=== PATIENT | female | born 1970 | race Caucasian/White ===

== ENCOUNTER 2019-06-02 06:55 | Observation (INO) | payer OTHER ==
--- OUTSIDE RECORDS SUMMARY | 2019-06-02 06:57 | XMS REPORT | Clinical Summary ---
:1970 Author Organization [facility] Address [address] [place] [address] Care Team Providers Name Role Phone Unavailable Primary Care Provider Unavailable Allergies No Known Allergies Medications Medication Sig Dispensed Refills Start Date End Date Status meloxicam (MOBIC) 0 12/17/2017 Active 7.5 MG tablet atorvastatin 0 12/15/2017 Active (LIPITOR) 20 MG tablet sertraline (ZOLOFT) Take 100 mg by 0 Active 100 MG tablet mouth daily. metFORMIN (GLUMETZA) Take 500 mg by 0 Active 500 MG (MOD) 24 hr mouth daily with tablet breakfast. [id number] Take by mouth. 0 Active lic acid (OOAQPJCPPBUK-CHUT-A INERALS-FOLIC ACID) 3,500-18-0.4 unit-mg-mg Chew CONTOUR NEXT TEST TEST GLUCOSE UP 3 04/29/2018 Active STRIPS Strp TO 6 TIMES DAILY conjugated estrogens Place 0.5 g 42.5 g 1 03/23/2018 03/23/2019 (PREMARIN) 0.625 vaginally 3 mg/gram vaginal (three) times a cream week. Active Problems Problem Noted Date Vaginal atrophy 12/24/2017 Dyspareunia, female 12/24/2017 Hypoactive sexual desire 12/24/2017 Encounters Date Type Specialty Care Team Description 05/31/2019 Office Visit Obstetrics and Anel Chatman Well woman exam with Gynecology MD Adrianna routine gynecological exam (Primary Dx) 07/16/2018 Telephone Obstetrics and Anel Chatman Results Gynecology MD Adrianna 06/08/2018 Orders Only Obstetrics and Anel Chatman Gynecology MD Adrianna 06/01/2018 Orders Only Obstetrics and Anel Chatman Gynecology MD Adrianna after 06/01/2018 Family History Medical History Relation Name Comments Diabetes Maternal Grandmother Relation Name Status Comments Maternal Grandmother Social History Tobacco Use Types Packs/Day Years Used Date Never Smoker Smokeless Tobacco: Never Used Alcohol Use Drinks/Week oz/Week Comments Yes Sex Assigned at Date Recorded Not on file Job Start Date Occupation Industry Not on file Not on file Not on file Travel History Travel Start Travel End No recent travel history available. Last Filed Vital Signs Vital Sign Reading Time Taken Blood Pressure 145/89 05/31/2019 8:14 AM CDT Pulse 57 05/31/2019 8:14 AM CDT Temperature 36.7 C (98 F) 05/31/2019 8:14 AM CDT Respiratory Rate - - Oxygen Saturation - - Inhaled Oxygen Concentration - - Weight 68.5 kg (151 lb) 05/31/2019 8:14 AM CDT Height 172.7 cm (5' 8") 05/31/2019 8:14 AM CDT Body Mass Index 22.96 05/31/2019 8:14 AM CDT Plan of Treatment Date Type Specialty Care Team Description 06/05/2020 Office Visit Obstetrics and Gynecology Anel Chatman MD [facility] [address] [phone] Procedures Procedure Name Priority Date/Time Associated Diagnosis Comments MAMMO SCREENING Routine 06/08/2018 Results for this BILATERAL procedure are in the results section. PAP IG CT-NG RFX HPV AP Routine 06/01/2018 Results for this ASCU procedure are in the results section. after 06/01/2018 Results Mammography screening bilateral (06/08/2018) Narrative Performed At PAP IG CT-NG RFX HPV ASCU (06/01/2018) Narrative Performed At after 06/01/2018 Insurance Payer Benefit Plan / Group Subscriber ID Type Phone Address [employer] - [employer] HMO POS QPOS xxxxxxxxx HMO/POS
[2019-06-02] MEDS ORDERED: ONDANSETRON 4 MG/2 ML VIAL ONE ×2 (07:27→13:02)
[2019-06-02] MEDS ORDERED: MORPHINE 4 MG/ML SYR ONE ×2 (07:27→07:59)
[2019-06-02] MEDS ORDERED: FENTANYL CITR 100 MCG/2 ML ONE ×2 (08:23→11:06)
[2019-06-02] MEDS ORDERED: NA CHLORIDE 0.9% 1,000 ML ONE (08:23)
[2019-06-02 08:36] LABS: Basophils % 0.4 % (0-1.3); Eosinophils % 0.5 % (0-4.4); Hematocrit 38.3 % (36.0-45.0); Lymphocytes % 17.2 % (15.3-44.8); Monocytes % 5.6 % (3.3-12.3); RBC Red Blood Cell Count 4.17 M/uL (3.86-4.86)
[2019-06-02 09:43] LABS: Potassium 4.2 mmol/L (3.5-5.1)
--- NOTE | 2019-06-02 10:27 | RAD REPORT ---
EXAM DESCRIPTION: RAD - Femur Right - 06/02/2019 7:54 am CLINICAL HISTORY: Right leg pain FINDINGS: No femoral fracture seen
--- NOTE | 2019-06-02 10:27 | RAD REPORT ---
EXAM DESCRIPTION: CT - Lower Ext Angio - 06/02/2019 10:05 am CLINICAL HISTORY: Knee dislocation with tibial fracture and knee pain COMPARISON: X-rays June 02, 2019 TECHNIQUE: Computed tomography angiography of the right lower extremity obtained. 100 cc Isovue 370 was administered intravenously. Coronal and sagittal reconstruction were performed. MIP 3D reconstruction was performed All CT scans are performed using dose optimization technique as appropriate and may include automated exposure control or mA/KV adjustment according to patient size. FINDINGS: Tibia is dislocated laterally with respect to the femur. Moderate joint effusion Comminuted fracture involves the tibial spine with impaction of the lateral tibial plateau and avulsi on fracture fragments. The fracture extends inferiorly within the tibia with the craniocaudal length of 12 centimeters. Right common femoral, superficial femoral, deep femoral, popliteal, anterior tibial, posterior tibial and peroneal arteries are patent without tear, dissection or stenosis. IMPRESSION: Negative for a right lower extremity arterial injury
--- NOTE | 2019-06-02 10:27 | RAD REPORT ---
EXAM DESCRIPTION: RAD - Pelvis - 06/02/2019 7:54 am CLINICAL HISTORY: Pelvic pain status post injury FINDINGS: No fracture or dislocation is seen.
--- NOTE | 2019-06-02 10:28 | RAD REPORT ---
EXAM DESCRIPTION: RAD - Knee Right 2 View - 06/02/2019 7:54 am CLINICAL HISTORY: Right knee pain FINDINGS: The tibia is dislocated laterally with respect to the femur. Impacted fracture involves the lateral tibial plateau. Avulsion, comminuted fracture tibial spine. Th e fracture extends distally within the tibia with a craniocaudal length of 11 centimeters. The fractu re extends medially as well as laterally. Mild displacement of the medial fracture fragments is prese nt.
--- NOTE | 2019-06-02 10:28 | RAD REPORT ---
EXAM DESCRIPTION: RAD - Tib Fib Right - 06/02/2019 7:54 am CLINICAL HISTORY: Right leg pain FINDINGS: The tibia is dislocated laterally with respect to the femur. Impacted fracture involves the lateral tibial plateau. Avulsion, comminuted fracture tibial spine. Th e fracture extends distally within the tibia with a craniocaudal length of 11 centimeters. The fractu re extends medially as well as laterally. Mild displacement of the medial fracture fragments is prese nt.
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
[2019-06-02] MEDS ORDERED: MEPERIDINE HCL 25 MG/0.5 ML ONE (13:35)
[2019-06-02] MEDS ORDERED: FENTANYL CITR 100 MCG/2 ML IV ONE ×2 (14:29→18:32)
[2019-06-02] MEDS ORDERED: ENOXAPARIN 40 MG/0.4 ML SQ SCH (15:00)
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
== END 2019-06-02 18:50 | disposition home or self-care (01) ==
LOC: ER 06:55 → ERHOLD 12:37 → 4TH 13:58
PROVIDERS: ADMIT Family Medicine; ATTEND Family Medicine
DX: S82.141A Displaced bicondylar fracture of right tibia, initial encounter for closed fracture (principal); S82.111A Displaced fracture of right tibial spine, initial encounter for closed fracture; V19.3XXA Pedal cyclist (driver) (passenger) injured in unspecified nontraffic accident, initial encounter; Y93.K1 Activity, walking an animal; E10.9 Type 1 diabetes mellitus without complications; Z96.41 Presence of insulin pump (external) (internal)
CPT/HCPCS: 36415; 72170; 73706; 80048; 85025; 94760; 99285; G0378; J1650; J2175; J2405; J3010; J7030; Q9967

== ENCOUNTER 2020-09-03 09:13 | Emergency (ER) | payer OTHER ==
--- OUTSIDE RECORDS SUMMARY | 2020-09-03 09:17 | XMS REPORT | Continuity of Care Document ---
:1970 Author Organization [facility] Care Team Providers Name Role Phone [facility] Unavailable Un available Problems Problem Status Onset Classification Date Comments Sourc e Date Reported Pain in leg, 06/10/2019 Aime as unspecified [address] [place] [address] R22 - LOCALIZED Active Manjeet rial SWELLING, MASS [address] [place] [address] nn AND L NEEDS STAT Active [address] [id number] Active [address] TIBIAL FX Active [address] DISPLACED Active [facility] BICONDYLAR Medical FRACTURE OF Center UNSP TI DISPLACED Active [facility] OBLIQUE Medical FRACTURE OF Center SHAFT OF R Medications Medication Details Route Status Patient Ordering Order Source Instructions Provider Date Lidocaine 0.05 1 patch, TOP, Active [place] MG/MG Transdermal Daily, PRN as 2019 Medical Patch needed for Center pain, # 30 patch, 0 Refill(s) Ondansetron 4 MG 4 mg = 1 tab, Active [place] Oral Tablet PO, Q8H, PRN as 2019 Medi judie [Zofran] needed for Center nausea, # 25 tab, 0 Refill(s) tramadol 50 mg = 1 tab, Active [place] hydrochloride 50 PO, Q6H, PRN 2019 Me dical MG Oral Tablet take only as Cent er needed for moderate to severe pain, # 40 tab, 0 Refill(s) Aspirin Enteric 81 mg = 1 tab, Active H [place] Coated 81 mg oral PO, Daily, # 38 2019 Medical delayed release tab, 0 Center tablet Refill(s) sennosides, INTERMEDIATE Notes: (Same No Longer H [place] as: Senokot) Active 2019 [facility] Methocarbamol Notes: (Same No Longer [facility] as:Robaxin) Active 2019 [facility] remove patch Notes: Remove No Longer [facility] patch 12 hours Active 2019 Medical after Center application each day. Docusate Notes: (Same No Longer [place] as: Colace) (Do Active 2018 Medical Not Crush) Center tizanidine Notes: (Same No Longer Aime as As: Zanaflex) Active 2019 [facility] Center gabapentin Notes: (Same No Longer A[place] as as: Neurontin) Active 2019 [facility] [place] Lidocaine Notes: Apply [place] Longer [place] Hydrochloride only once for Active 2018 Medi judie 0.05 MG/MG up to 12 hours Center Transdermal Patch in a 24-hour [Lidoderm] period (12 hours on and 12 hours off). (Same as: Lidoderm) "Remove old patch before application of new patch" gabapentin Notes: (Same No Longer A[place] as as: Neurontin) Active 2019 [facility] [place] Acetaminophen Notes: [place] acetaminophen Active 2019 [facility] 4000 mg/day (4 Center gm/day). (Same as: Tylenol Extra Strength) tizanidine Notes: (Same No Longer A[place] as As: Zanaflex) Active 2019 [facility] [place] Oxycodone Notes: (Same [place] Long[place] Hydrochloride 5 as: Roxicodone) Active 2019 Medical MG Oral Tablet [place] Cefazolin 2 gm, 20 mL, [place] Route: IVP, Active 2018 Medical Drug form: [place] SOLN, Q8H, Dosing Weight 68.182, kg, Start date: 06/16/19 20:00:00 CDT, Duration: 3 doses or times, Stop date: 06/17/19 12:00:00 CDT, ABX Indication: Surgical Prophylaxis, 0 Oxycodone 10 mg, Route: [place] Hydrochloride 5 PO, Drug form: 2019 M edical MG Oral Tablet TAB, Q4H, [place] Dosing Weight 68.182, kg, PRN Pain Score 7-10, Start date: 06/16/19 17:57:00 CDT, Duration: 30 day, Stop date: 07/16/19 17:56:00 CDT Hydromorphone 0.5 mg, Route: Inactive [place] IVP, ONCE, 2019 Medical Dosing Weight Center 68.182, kg, PRN Pain Score 7-10, Start date: 06/16/19 12:53:00 CDT Acetaminophen 1,000 mg, [place] Route: PO, Drug 2019 Medical form: TAB, Center ONCE, Dosing Weight 68.182, kg, PRN Pain Score 1-3, Start date: 06/16/19 12:53:00 CDT Methocarbamol Notes: (Same Inactive [place] as:Robaxin) 2019 Medical Center Oxycodone 10 mg, Route: Inactive [place] Hydrochloride 5 PO, ONCE, 2019 Medica l MG Oral Tablet Dosing Weight [address] ter 68.182, kg, Priority: NOW, Start date: 06/16/19 11:32:00 CDT, Stop date: 06/16/19 11:32:00 CDT Morphine Notes: (Same Inactive [facility] as:MORPhine 2019 Medical Sulfate) Center tramadol Notes: Not to Inactive [facility] hydrochloride 50 exceed 2019 Medical MG Oral Tablet 400mg/day. Center (Same As: Ultram) Acetaminophen 325 Notes: Same as Inactive 06/16[facility] [place] MG / Hydrocodone [place] 325-7.5mg 2019 Medical Bitartrate 7.5 MG Do not exceed Center Oral Tablet 4gm/day of [[place] 7.5/325] acetaminophen. ondansetron Route: IV, Drug Inactive [facility] (ANES) form: INJ, 2019 Medical ONCE, Stop Center date: 06/16/19 10:26:00 CDT glycopyrrolate Route: IV, Drug Inactive 06/16[facility] (ANES) form: INJ, 2019 Medical ONCE, Stop Center date: 06/16/19 10:26:00 CDT neostigmine Route: IV, Drug Inactive 06/16[facility] (ANES) form: INJ, 2019 Medical ONCE, Stop Center date: 06/16/19 10:26:00 CDT Hydromorphone 0.5 mg, Route: Inactive [place] IVP, Q5Min, 2019 Medical Dosing Weight Center 68.182, kg, PRN Pain Score 7-10, Start date: 06/16/19 10:00:00 CDT, Duration: 4 doses or times, Stop date: Limited # of times Flumazenil Notes: (Same [place] as: Romazicon) 2019 [facility] [place] Naloxone Notes: Same [place] Narcan 2019 [facility] Center Promethazine Notes: Do not Inactive [place] give IV push. 2019 Medical (Same as: [place] Phenergan) Ondansetron 4 mg, Route: Inactive Aime as IVP, ONCE, 2019 Medical Dosing Weight Center 68.182, kg, PRN Nausea & Vomiting, Start date: 06/16/19 10:00:00 CDT Fentanyl Notes: (Same Inactive [place] as: Sublimaze) 2019 [facility] Preservative [place] free. rocuronium (ANES) Route: IV, Drug Inactive 06/16 [place] form: INJ, 2018 Medical ONCE, Stop Center date: 06/16/19 8:29:00 CDT propofol (ANES) Route: IV, Drug Inactive [place] form: INJ, 2018 Medical ONCE, Stop Center date: 06/16/19 8:29:00 CDT scopolamine Route: Inactive [place] (ANES) Transdermal, 2019 Medical Drug form: Center ERFILM, ONCE, Stop date: 06/16/19 8:29:00 CDT fentaNYL (ANES) Route: IV, Drug Inactive [place] form: INJ, 2018 Medical ONCE, Stop Center date: 06/16/19 8:29:00 CDT lidocaine (ANES) Route: IV, Drug Inactive [place] form: INJ, 2018 Medical ONCE, Stop Center date: 06/16/19 8:29:00 CDT ceFAZolin (ANES) Route: IV, Drug Inactive [place] form: INJ, 2018 Medical ONCE, Stop Center date: 06/16/19 8:24:00 CDT ketAMINE (ANES) Route: IV, Drug Inactive [place] form: INJ, 2018 Medical ONCE, Stop Center date: 06/16/19 8:24:00 CDT midazolam (ANES) Route: IV, Drug Inactive [place] form: SOLN, 2018 Medical ONCE, Stop Center date: 06/16/19 8:14:00 CDT dexmedetomidine Route: IV, Drug Inactive [place] (ANES) 200 form: INJ, 2019 Medical microgram Start date: Center 06/16/19 8:03:00 CDT, Stop date: 06/16/19 9:03:00 CDT 72 HR Scopolamine Notes: Change No Longer [place] 0.0139 MG/HR patch every 72 Active 2019 Medi judie Transdermal Patch hours (Same Center as: Transderm-Scop) aprepitant Notes: Same as: No Longer [place] Emend Active 2019 Medical restricted to Center the Hematology/Onco logy service for high and moderate emetogenic regimen according to ASCO Guidelines Passthrough Only for Chemotherapy-In duced nausea & vomiting Lactated Ringers Route: IV, Inactive [place] Injection IV Total Volume: 2019 Medic al (ANES) 1000 mL 1,000, Start Cent er date: 06/16/19 7:38:00 CDT, Stop date: 06/16/19 8:38:00 CDT gabapentin 300 MG 300 mg, Route: Inactive [place] Oral Capsule PO, Drug form: 2019 Medi judie CAP, ONCE, Center Dosing Weight 68.182, kg, Start date: 06/16/19 6:44:00 CDT, Stop date: 06/16/19 6:44:00 CDT Tylenol Notes: Max Inactive [place] acetaminophen 2019 Medical 4000 mg/day (4 Center gm/day). (Same as: Tylenol Extra Strength) ceFAZolin Notes: (Same as No Longer [place] Ancef) Active 2019 [facility] spironolactone 25 25 mg = 1 tab, Active [place] mg oral tablet PO, QPM, 0 2019 Medica l Refill(s) [place] Docusate Sodium 300 mg = 3 cap, Active [place] 100 MG Oral PO, QPM, 0 2018 Medical Capsule [Colace] Refill(s) Cente r Acetaminophen 1,000 mg, PO, No Longer [facility] PRN Pain Score Active 2019 Medical 4-6, 0 Center Refill(s) Acetaminophen 300 1 tab, PO, Q6H, No Longer 05/18 [facility] MG / Codeine PRN Pain Score Active 2019 [facility] judie Phosphate 60 MG 1-3, 0 Center Oral Tablet Refill(s) [Tylenol with Codeine #4] tizanidine 2 mg 2 mg = 1 tab, Active [facility] oral tablet PO, Q6H, PRN 2019 Medical Muscle Spasms, Center # 25 tab, 0 Refill(s) gabapentin 300 MG 300 mg = 1 cap, Active [facility] Oral Capsule PO, Q8Hnow, # 2019 Medic al 90 cap, 0 Center Refill(s) Aspirin 81 MG 81 mg = 1 tab, Active [facility] Enteric Coated PO, BID, 0 2019 Medica l Tablet Refill(s) Center Acetaminophen 300 1 tab, PO, Q4H, Active [facility] MG / Codeine PRN Pain, X 7 2019 Medic al Phosphate 60 MG day, # 40 tab, C enter Oral Tablet 0 Refill(s) [Tylenol with Codeine #4] gabapentin 300 MG Notes: (Same No Longer [facility] Oral Capsule as: Neurontin) Active 2019 [facility] Oxycodone Notes: (Same [place] Longer [place] Hydrochloride 5 as: Roxicodone) Active 2019 Medical MG Oral Tablet Center Morphine Notes: (Same No Longer [place] as:MORPhine Active 2019 Medical Sulfate) Center Enoxaparin Notes: (Same [place] as: Lovenox) 2019 Medical Center sennosides, INTERMEDIATE Notes: (Same No Longer 06/04/ H [place] as: Senokot) Active 2019 [facility] Aspirin 81 MG Notes: Do not No Longer [facility] Enteric Coated crush or chew. Active 2019 N[place] dical Tablet (Same As: Center Ecotrin) sugammadex Notes: (Same No Longer Aime as as: [place]) Active 2019 [facility] ondansetron Route: IV, Drug Inactive [facility] (ANES) form: INJ, 2019 Medical ONCE, Stop Center date: 06/03/19 9:42:00 CDT Ondansetron Notes: (Same Inactive A[place] as as: Zofran) 2019 Medical MEDICATION Center WASTE Product Size: 4 mg Product Wasted: ___ mg Labetalol 10 mg, 2 mL, Inactive [facility] [place] Route: IVP, 2019 Medical Drug form: INJ, Center Q5Min, Dosing Weight 68.182, kg, PRN Elevated BP, Start date: 06/03/19 9:38:00 CDT, Duration: 5 doses or times, Stop date: Limited # of times, 0 esmolol Notes: (Same Inactive [place] as: Brevibloc) 2019 [facility] Center Hydralazine Notes: (Same Inactive [place] as as: Apresoline) 2019 Medical Push over 5 Center minutes Metoprolol Notes: (Same [place] as: Lopressor) 2019 Medical Push over 2 Center minutes Naloxone Notes: (Same Inactive [place] as: Narcan) 2019 [facility] Center Flumazenil Notes: (Same [place] as: Romazicon) 2019 [facility] Center dexamethasone Route: IV, Drug Inactive H [place] (ANES) form: INJ, 2018 Medical ONCE, Stop Center date: 06/03/19 9:37:00 CDT rocuronium (ANES) Route: IV, Drug Inactive 06/03 [facility] form: INJ, 2018 Medical ONCE, Stop Center date: 06/03/19 9:32:00 CDT fentaNYL (ANES) Route: IV, Drug Inactive [facility] form: INJ, 2018 Medical ONCE, Stop Center date: 06/03/19 9:32:00 CDT propofol (ANES) Route: IV, Drug Inactive [facility] form: INJ, 2018 Medical ONCE, Stop Center date: 06/03/19 9:32:00 CDT midazolam (ANES) Route: IV, Drug Inactive [facility] form: SOLN, 2018 Medical ONCE, Stop Center date: 06/03/19 9:27:00 CDT lidocaine (ANES) Route: IV, Drug Inactive [facility] form: INJ, 2018 Medical ONCE, Stop Center date: 06/03/19 9:27:00 CDT ceFAZolin (ANES) Route: IV, Drug Inactive [facility] form: INJ, 2018 Medical ONCE, Stop Center date: 06/03/19 9:27:00 CDT Naloxone Notes: (Same Inactive [place] as: Narcan) 2019 Medical Center Flumazenil Notes: (Same [place] as: Romazicon) 2019 Medical Center Ondansetron Notes: (Same Inactive [place] as as: Zofran) 2019 Medical MEDICATION Center WASTE Product Size: 4 mg Product Wasted: ___ mg Hydromorphone Notes: Same as: Inactive [facility] Dilaudid 2019 Medical Center Oxycodone Notes: (Same Inactive 06/03[facility] [place] Hydrochloride 5 as: Roxicodone) 2019 Medical MG Oral Tablet Center Oxycodone Notes: (Same Inactive 06/03[facility] [place] as: 2019 Medical 'Roxicodone) Center Acetaminophen Notes: Max Inactive Aime as acetaminophen 2019 Medical 4000 mg/day (4 Center gm/day). (Same as: Tylenol Extra Strength) Hydralazine Notes: (Same Inactive [place] as as: Apresoline) 2019 Medical Push over 5 Center minutes Labetalol 10 mg, 2 mL, Inactive [facility] Route: IVP, 2019 Medical Drug form: INJ, Center Q5Min, Dosing Weight 68.182, kg, PRN Elevated BP, Start date: 06/03/19 9:15:00 CDT, Duration: 5 doses or times, Stop date: Limited # of times, 0 POLYETHYLENE Notes: Dissolve No Longer [facility] GLYCOL 3350 in 8 oz of Active 2019 Medical water or juice. Center (Same as: Miralax) Docusate Notes: (Same No Longer [place] as: Colace) (Do Active 2019 Medical Not Crush) Center Cefazolin Notes: (Same as No Longer [place] Ancef) Active 2019 Medical Center Lactated Ringers Route: IV, Inactive [place] Injection IV Total Volume: 2019 Medic al (ANES) 1000 mL 1,000, Start Cent er date: 06/03/19 8:35:00 CDT, Stop date: 06/03/19 9:35:00 CDT Ibuprofen Notes: (Same [place] Longer [place] as: Motrin) "Do Active 2019 Medical Not Crush" Center Take with food. Insulin Pump 1 ea, MISC, [place] Misc/Other ONCE, Will 2019 Medical require a Center certificate of medical necessity for reimbursment from Medicare/insura nce, # 1 ea, 0 Refill(s) spironolactone 25 25 mg = 1 tab, No Longer 06/03 [place] mg oral tablet PO, Daily, # 30 Active 2019 M edical tab, 3 Center Refill(s) Metformin 1,000 mg = 1 Active [place] hydrochloride tab, PO, 2019 Medical 1000 MG Oral BID-Meals, # [address] Tablet tab, 0 Refill(s) Enoxaparin Notes: (Same [place] as: Lovenox) 2019 Medical Center Acetaminophen Notes: Max [place] Long[place] acetaminophen Active 2019 Medical 4000 mg/day (4 Center gm/day). (Same as: Tylenol Extra Strength) Glucagon 1 mg, Route: No Longer [place] IM, Drug form: Active 2018 Medical PDR/INJ, PRN, Center Dosing Weight 68.182, kg, PRN Blood Glucose Results, Start date: 06/03/19 0:20:00 CDT, Duration: 30 day, Stop date: 07/03/19 0:19:00 CDT, 0 Dextrose 50% 25 gm, 50 mL, No Longer [place] Syringe Route: IVP, Active 2018 Medical Drug Form: INJ, Center Dosing Weight 68.182, kg, PRN, PRN Blood Glucose Results, Start date: 06/03/19 0:20:00 CDT, Duration: 30 day, Stop date: 07/03/19 0:19:00 CDT, 0 Melatonin Notes: (Same No Longer [place] as: Melatonin) Active 2019 Medical Center Bisacodyl Notes: (Same No Longer [place] As: Dulcolax, Active 2019 Medical Bisco-Lax) Center Morphine Notes: (Same No Longer [place] as:MORPhine Active 2019 Medical Sulfate) Center tizanidine Notes: (Same No Longer Aime as As: Zanaflex) Active 2019 Medical Center Ondansetron Notes: (Same [place] as: Zofran) Active 2019 Medical MEDICATION Center WASTE Product Size: 4 mg Product Wasted: ___ mg Tramadol Notes: Not to [place] Longer [place] exceed Active 2019 Medical 400mg/day. Center (Same As: Ultram) Oxycodone Notes: (Same [place] Longer [place] Hydrochloride 5 as: Roxicodone) Active 2019 Medical MG Oral Tablet Center Glucagon 1 mg, Route: Inactive [facility] IM, Drug form: 2019 Medical PDR/INJ, PRN, Center Dosing Weight 68.182, kg, PRN Blood Glucose Results, Start date: 06/03/19 0:18:00 CDT, Duration: 30 day, Stop date: 07/03/19 0:17:00 CDT, 0 Dextrose 50% 25 gm, 50 mL, Inactive [place] Syringe Route: IVP, 2019 Medical Drug Form: INJ, Center Dosing Weight 68.182, kg, PRN, PRN Blood Glucose Results, Start date: 06/03/19 0:18:00 CDT, Duration: 30 day, Stop date: 07/03/19 0:17:00 CDT, 0 Insulin Lispro Notes: (Same Inactive [facility] as: Humalog) 2019 Medical Roll in palms Center of hands gently; Do not shake vigorously. WASTE: F/P - Black; E - Municipal Trash Bin Stable for 28 days at room temperature. Expires in days from D ate Propofol 60 mg, Route: Inactive [facility] IV, ONCE, 2019 Medical Dosing Weight Center 68.182, kg, Start date: 06/02/19 22:02:00 CDT, Stop date: 06/02/19 22:02:00 CDT Ketamine 65 mg, Route: Inactive [facility] IV, ONCE, 2019 Medical Dosing Weight Center 68.182, kg, Start date: 06/02/19 22:02:00 CDT, Stop date: 06/02/19 22:02:00 CDT Zofran Notes: (Same Inactive 06/03[facility] as: Zofran) 2019 Medical MEDICATION Center WASTE Product Size: 4 mg Product Wasted: ___ mg Morphine Notes: (Same Inactive [facility] as:MORPhine 2018 Medical Sulfate) Center Allergies, Adverse Reactions, Alerts Substance Category Reaction Severity Reaction Status Date Comments S ource type Reported No Known Assertion Drug [facility] Medication allergy Medic al Allergies Center Immunizations No Data Provided for This Section Results Order Name Results Value Reference Date Interpretation Comments Cordelia rce Range ELECTROLYTES Potassium 4.1 3.5 - 5.1 [facility] [facility] ELECTROLYTES Sodium Lvl 140 135 - 145 06/[address] [facility] as [facility] ELECTROLYTES CO2 31 24 - 32 06/17 [facility] ELECTROLYTES Chloride Lvl 101 95 - 109 06/17 [place] [facility] ELECTROLYTES BUN 8 7 - 22 06/17 [facility]2018 [facility] ELECTROLYTES Glucose Lvl 89 70 - 99 06/17 [facility] ELECTROLYTES Creatinine 0.70 0.50 - 06/17 [facility] Lvl 1.40 [facility] ELECTROLYTES Calcium Lvl 9.0 8.5 - 10.5 06/17 [place] [facility] ELECTROLYTES AGAP 12.1 10.0 - 06/17 [facility] 20.0 [facility] ELECTROLYTES eGFR 102 06/17 [facility] Comment: The Medical eGFR is Center calculated using the CKD-EPI formula. In most young, healthy individuals the eGFR will be >90 mL/min/1.73m2 . The eGFR declines with age. An eGFR of 60-89 may be normal in some populations, particularly the elderly, for whom the CKD-EPI formula has not been extensively validated. Use of the eGFR is not recommended in the following populations:< br/>
[place] viduals with unstable creatinine concentration s, including patients and those with serious co-morbid conditions.<b r/>
Patie nts with extremes in muscle mass or diet.

The data above are obtained from the National Kidney Disease Education Program (NKDEP) which additionally recommends that when the eGFR is used in patients with extremes of body mass index for purposes of drug dosing, the eGFR should be multiplied by the estimated BMI. HEMATOLOGY Segs 74.6 45.0 - 08 [facility] 75.0 [facility] HEMATOLOGY Lymphocytes 16.3 20.0 - 08 [facility] 40.0 [facility] HEMATOLOGY Monocytes 7.1 2.0 - 12.0 06/17 [facility] HEMATOLOGY Eosinophils 1.5 0.0 - 4.0 06/17 [facility] HEMATOLOGY Basophils 0.5 0.0 - 1.0 06/17 [facility] HEMATOLOGY Neutrophils 4.3 1.5 - 8.1 06/17 [facility] # /2018 [facility] HEMATOLOGY Lymphocytes 0.9 1.0 - 5.5 06/17 [facility] # [facility] HEMATOLOGY Monocytes # 0.4 0.0 - 0.8 06/17 [facility] HEMATOLOGY Eosinophils 0.1 0.0 - 0.5 06/17 [facility] # [facility] HEMATOLOGY RDW 12.7 11.5 - 06/17 [facility] 14.5 [facility] HEMATOLOGY Platelet 410 133 - 450 06/17 [facility] HEMATOLOGY MPV 7.3 7.4 - 10.4 06/17 [facility] HEMATOLOGY MCHC 33.1 32.0 - 06/17 [place] 36.0 [facility] HEMATOLOGY MCH 30.2 27.0 - 06/17 [place] 31.0 [facility] HEMATOLOGY Hgb 10.7 12.0 - 06/17 [facility] 16.0 [facility] HEMATOLOGY Hct 32.3 36.0 - 06/17 [place] 48.0 [facility] HEMATOLOGY MCV 91.3 80.0 - 06/17 [place] 98.0 [facility] HEMATOLOGY RBC 3.54 4.20 - 06/17 [place] 5.40 [facility] HEMATOLOGY WBC 5.7 3.7 - 10.4 06/17 [facility] ELECTROLYTES AGAP 5.6 10.0 - 06/04 [facility] 20.0 [facility] ELECTROLYTES eGFR 94 06/04 Result Comment: The Medical eGFR is Center calculated using the CKD-EPI formula. In most young, healthy individuals the eGFR will be >90 mL/min/1.73m2 . The eGFR declines with age. An eGFR of 60-89 may be normal in some populations, particularly the elderly, for whom the CKD-EPI formula has not been extensively validated. Use of the eGFR is not recommended in the following populations:< br/>
[place] viduals with unstable creatinine concentration s, including patients and those with serious co-morbid conditions.<b r/>
Patie nts with extremes in muscle mass or diet.

The data above are obtained from the National Kidney Disease Education Program (NKDEP) which additionally recommends that when the eGFR is used in patients with extremes of body mass index for purposes of drug dosing, the eGFR should be multiplied by the estimated BMI. ELECTROLYTES Calcium Lvl 8.5 8.5 - 10.5 06/04 [place] [facility] ELECTROLYTES BUN 13 7 - 22 06/04 [facility]2018 [facility] ELECTROLYTES Glucose Lvl 141 70 - 99 06/04 [place] [facility] ELECTROLYTES Sodium Lvl 137 135 - [address] [facility] as [facility] ELECTROLYTES Creatinine 0.75 0.50 - 06/04 [place] Lvl 1.40 [facility] ELECTROLYTES CO2 33 24 - 32 06/04 [facility]2018 [facility] ELECTROLYTES Potassium 3.6 3.5 - 5.1 06/04 [place] Lvl [facility] ELECTROLYTES Chloride Lvl 102 95 - 109 06/04 [place] [facility] HEMATOLOGY Neutrophils 2.8 1.5 - 8.1 06/04 [place] [facility] HEMATOLOGY Lymphocytes 1.8 1.0 - 5.5 06/04 [place] /2018 [facility] HEMATOLOGY Monocytes # 0.4 0.0 - 0.8 06/04 [facility] HEMATOLOGY Basophils 0.6 0.0 - 1.0 06/04 [facility] HEMATOLOGY Eosinophils 0.9 0.0 - 4.0 06/04 s [facility] HEMATOLOGY Lymphocytes 36.4 20.0 - 06/04 [place] 40.0 [facility] HEMATOLOGY Segs 54.6 45.0 - 06/04 [place] 75.0 [facility] HEMATOLOGY Monocytes 7.5 2.0 - 12.0 06/04 2018 [facility] HEMATOLOGY MCH 31.3 27.0 - 06/04 [place] 31.0 [facility] HEMATOLOGY MCV 92.3 80.0 - 06/04 [place] 98.0 [facility] HEMATOLOGY MCHC 33.9 32.0 - 06/04 [place] 36.0 [facility] HEMATOLOGY Hct 34.9 36.0 - 06/04 [facility] 48.0 [facility] HEMATOLOGY RBC 3.78 4.20 - 06/04 [place] 5.40 [facility] HEMATOLOGY Hgb 11.8 12.0 - 06/04 16.0 [facility] HEMATOLOGY WBC 5.1 3.7 - 10.4 06/04 [facility] HEMATOLOGY Platelet 189 133 - 450 06/04 [facility] HEMATOLOGY MPV 7.8 7.4 - 10.4 06/04 [facility] HEMATOLOGY RDW 12.8 11.5 - 06/04 [facility] 14. [facility] ENDOCRINOLOGY S Preg Negative Negative 06/03 [facility] *NA* /2018 [facility] (06/03/19 5:58 AM) Center ELECTROLYTES AGAP 14.4 10.0 - 06/03 [facility] 20. [facility] ELECTROLYTES eGFR 102 06/03 Result Comment: The Medical eGFR is Center calculated using the CKD-EPI formula. In most young, healthy individuals the eGFR will be >90 mL/min/1.73m2 . The eGFR declines with age. An eGFR of 60-89 may be normal in some populations, particularly the elderly, for whom the CKD-EPI formula has not been extensively validated. Use of the eGFR is not recommended in the following populations:< br/>
[place] viduals with unstable creatinine concentration s, including patients and those with serious co-morbid conditions.<b r/>
Patie nts with extremes in muscle mass or diet.

The data above are obtained from the National Kidney Disease Education Program (NKDEP) which additionally recommends that when the eGFR is used in patients with extremes of body mass index for purposes of drug dosing, the eGFR should be multiplied by the estimated BMI. ELECTROLYTES Calcium Lvl 9.2 8.5 - 10.5 06/03 [place] [facility] ELECTROLYTES Chloride Lvl 102 95 - 109 06/03 [place] [facility] ELECTROLYTES CO2 26 24 - 32 06/03 [facility] ELECTROLYTES Potassium 4.4 3.5 - 5.1 06/03 [place] Comment: [facility] hemolysis ELECTROLYTES Sodium Lvl 138 135 - 145 06/03 [place] [facility] ELECTROLYTES BUN 16 7 - 22 06/03 [facility] ELECTROLYTES Glucose Lvl 133 70 - 99 06/03 [place] /2019 [facility] ELECTROLYTES Creatinine 0.70 0.50 - 06/03 [place] Lvl 1.40 [facility] HEMATOLOGY PTT 29.9 22.9 - 06/03 [place] 35.8 /2019 [facility] HEMATOLOGY PT 13.8 12.0 - 06/03 [place] 14.7 2019 [facility] HEMATOLOGY INR 1.08 0.85 - 06/03 [place] 1.17 [facility] HEMATOLOGY RBC 3.93 4.20 - 06/03 [place] 5.40 [facility] HEMATOLOGY WBC 7.7 3.7 - 10.4 06/03 [facility] HEMATOLOGY Hgb 12.3 12.0 - 06/03 [place] 16.0 2019 [facility] HEMATOLOGY Hct 36.4 36.0 - 06/03 [place] 48.0 2019 [facility] HEMATOLOGY MCHC 33.8 32.0 - 06/03 [place] 36.0 [facility] HEMATOLOGY MCH 31.3 27.0 - 06/03 [place] 31.0 2019 [facility] HEMATOLOGY MCV 92.7 80.0 - 06/03 [place] 98.0 2019 [facility] HEMATOLOGY RDW 13.1 11.5 - 06/03 [place] 14.5 [facility] HEMATOLOGY Platelet 217 133 - 450 06/03 [facility] HEMATOLOGY MPV 8.1 7.4 - 10.4 06/03 [facility] HEMATOLOGY Monocytes 6.2 2.0 - 12.0 06/03 [facility] HEMATOLOGY Basophils 0.2 0.0 - 1.0 06/03 [facility] HEMATOLOGY Neutrophils 6.5 1.5 - 8.1 06/03 [place] # /2019 [facility] Center HEMATOLOGY Lymphocytes 8.7 20.0 - 06/03 [place] 40.0 2019 [facility] HEMATOLOGY Monocytes # 0.5 0.0 - 0.8 06/03 [place] /2019 [facility] HEMATOLOGY Lymphocytes 0.7 1.0 - 5.5 06/03 [place] # /2019 [facility] HEMATOLOGY Segs 84.9 45.0 - 06/03 [place] 75.0 /2019 [facility] BLOOD BANK Antibody Negative 06/03 [facility] RESULTS Scrn (06/02/19 9:30 PM) [facility] BLOOD BANK ABO/Rh A POS 06/03 [facility] Medical Center Pathology Reports No Data Provided for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
[2020-09-03 09:58] LABS: Absolute Lymphocytes (CBC) 1.5 K/uL (0.7-4.9); Basophils % 0.8 % (0-1.3); Lymphocytes % 31.3 % (15.3-44.8); MPV 8.5 fL (7.6-11.3); RBC Red Blood Cell Count 4.18 M/uL (3.86-4.86)
[2020-09-03] MEDS ORDERED: NA CHLORIDE 0.9% 1,000 ML ONE (10:07)
[2020-09-03 10:22] LABS: Potassium 3.9 mmol/L (3.5-5.1); Thyroid Stimulating Hormone 1.66 uIU/mL (0.360-3.740)
[2020-09-03 10:34] LABS: Albumin 3.9 g/dL (3.4-5.0); Bilirubin Direct 0.1 mg/dL (0-0.2); Bilirubin Total 0.4 mg/dL (0.2-1.0); Protein, Total 7.8 g/dL (6.4-8.2)
--- NOTE | 2020-09-03 11:30 | RAD REPORT ---
EXAM DESCRIPTION: RAD - Chest Single View - 09/03/2020 10:03 am CLINICAL HISTORY: PALPITATIONS Chest pain. COMPARISON: No comparisons FINDINGS: Portable technique limits examination quality. Calcified granuloma seen left mid lung. The lungs are otherwise clear. The heart is normal in size. N o displaced fractures. IMPRESSION: No acute intrathoracic process suspected.
--- NOTE | 2020-09-03 12:34 | EDPHYS ---
Physician Documentation [facility] Name: Jessica Saldana Age: 50 yrs Sex: Female : 1970 Arrival Date: 09/03/2020 Time: 09:14 Bed 8 Private MD: ED Physician Дмитрий Wyatt HPI: 09/03 10:01 This 50 yrs old Female presents to ER via Ambulatory with complaints of rn General Weakness, Nausea, LightHeaded. 10:01 Reports generalized weakness, nausea, lightheaded, near syncope after roman catholic. Reports rn feels drained, blood sugar was high the other day, but now in 200s, feels thirsty and weak. No vomiting/diarrhea. No chest pain/sob/abd pain. . Onset: The symptoms/episode began/occurred yesterday. Severity of symptoms: At their worst the symptoms were moderate in the emergency department the symptoms are unchanged. The patient has not experienced similar symptoms in the past. The patient has not recently seen a physician. Historical: - Allergies: 09:15 No Known Allergies; aa5 - Home Meds: 09:15 Insulin pump [Active]; aa5 - PMHx: 09:15 Type 1 Diabetes; Hypertension; aa5 - PSHx: 09:15 ; Right leg; aa5 - Immunization history:: Adult Immunizations unknown. - Social history:: Smoking status: Patient denies any tobacco usage or history of. - Family history:: not pertinent. - Hospitalizations: : No recent hospitalization is reported. ROS: 10:01 Constitutional: Negative for fever, chills, and weight loss, Eyes: Negative for injury, rn pain, redness, and discharge, Neck: Negative for injury, pain, and swelling, Cardiovascular: Negative for chest pain, palpitations, and edema, Respiratory: Negative for shortness of breath, cough, wheezing, and pleuritic chest pain, Abdomen/GI: Negative for abdominal pain, vomiting, diarrhea, and constipation, Back: Negative for injury and pain, : Negative for injury, bleeding, discharge, and swelling, MS/Extremity: Negative for injury and deformity, Skin: Negative for injury, rash, and discoloration, Neuro: Negative for numbness, tingling, and seizure. Exam: 10:01 Constitutional: This is a well developed, well nourished patient who is awake, alert, rn and in no acute distress. Head/Face: Normocephalic, atraumatic. ENT: dry MM Neck: Trachea midline, no masses palpated, and no cervical lymphadenopathy. Supple, full range of motion without nuchal rigidity, or vertebral point tenderness. No Meningismus. Cardiovascular: Regular rate and rhythm. No pulse deficits. Respiratory: No increased work of breathing, no retractions or nasal flaring. Abdomen/GI: soft, non-tender Skin: Warm, dry, no cyanosis MS/ Extremity: Pulses equal, no cyanosis. Neurovascular intact. Full, normal range of motion. Equal circumference. Neuro: Awake and alert, GCS 15, oriented to person, place, time, and situation. Cranial nerves II-XII grossly intact. Motor strength 5/5 in all extremities. Sensory grossly intact. Cerebellar exam normal. 10:09 ECG was reviewed by the Attending Physician. rn Vital Signs: 09:15 BP 147 / 95; Pulse 62; Resp 18 S; Temp 98.2(O); Pulse Ox 99% on R/A; Weight 61.23 kg aa5 (R); Height 5 ft. 8 in. (172.72 cm) (R); Pain 0/10; 10:15 BP 125 / 82; Pulse 60; Resp 17; Pulse Ox 100% on R/A; rb1 11:15 BP 124 / 76; Pulse 59; Resp 16; Pulse Ox 100% ; rb1 12:15 BP 134 / 74; Pulse 52; Resp 16; Pulse Ox 100% ; rb1 09:15 Body Mass Index 20.53 (61.23 kg, 172.72 cm) aa5 MDM: 09:16 Patient medically screened. rn 12:31 Differential Diagnosis dehydration, viral illness, hyperglycemia, UTI, hypothyroidism, rn hypovolemia. Data reviewed: vital signs, nurses notes, lab test result(s), EKG, radiologic studies, plain films, and as a result, I will discharge patient. Counseling: I had a detailed discussion with the patient and/or guardian regarding: the historical points, exam findings, and any diagnostic results supporting the discharge/admit diagnosis, lab results, radiology results, the need for outpatient follow up, to return to the emergency department if symptoms worsen or persist or if there are any questions or concerns that arise at home. Response to treatment: the patient's symptoms have mildly improved after treatment, and as a result, I will discharge patient. Special discussion: I discussed with the patient/guardian in detail that at this point there is no indication for admission to the hospital. It is understood, however, that if the symptoms persist or worsen the patient needs to return immediately for re-evaluation. ED course: Pt improved with fluids, ambulatory to bathroom, no acute findings in blood/ecg/cxr/UA. Will dc home with oral rehydration and return precautions. repeat examination does not reveal any new or focal findings. . 09/03 09:30 Order name: CBC with Diff; Complete Time: 10:16 rn 09/03 09:30 Order name: Basic Metabolic Panel; Complete Time: 11: rn 09/03 09:30 Order name: Urine Microscopic Only rn 09/03 09:30 Order name: Flu; Complete Time: 11: rn 09/03 09:30 Order name: COVID-19 09/03 09:30 Order name: TSH; Complete Time: 11: rn 09/03 09:30 Order name: T4 Free; Complete Time: 11: rn 09/03 09:30 Order name: [place] Screen Profile; Complete Time: 11: rn 09/03 09:30 Order name: Procalcitonin; Complete Time: 11: rn 09/03 09:30 Order name: Lactate; Complete Time: 10:16 rn 09/03 10:17 Order name: CK; Complete Time: 11: rn 09/03 10:17 Order name: LFT's; Complete Time: 11: rn 09/03 12:34 Order name: Urine Dipstick--Ancillary (enter results) [facility] 09/03 12:34 Order name: Urine --Ancillary (enter results) [facility] 09/03 09:30 Order name: IV Start; Complete Time: 09:48 rn 09/03 09:30 Order name: Urine Dipstick-Ancillary (obtain specimen); Complete Time: 12:26 rn 09/03 09:30 Order name: EKG; Complete Time: 09:32 rn 09/03 09:30 Order name: EKG - Nurse/Tech; Complete Time: 10:06 rn 09/03 09:30 Order name: XRAY Chest (1 view); Complete Time: 11:32 rn 09/03 12:43 Order name: Urine Culture EDMS EC:09 Rate is 52 beats/min. Rhythm is regular. QRS [place] is Normal. GA interval is normal. QRS rn interval is normal. QT interval is normal. No Q waves. T waves are Normal. No ST changes noted. Clinical impression: Sinus bradycardia. Interpreted by me. Reviewed by me. Administered Medications: 10:54 Drug: NS 0.9% 1000 ml Route: IV; Rate: 1000 ml; Site: right antecubital; rb1 12:22 Follow up: IV Status: Completed infusion rb1 Disposition: 09/03/20 12:33 Discharged to Home. Impression: Dehydration, Weakness, Malaise and fatigue, Hyperglycemia, unspecified. - Condition is Stable. - Discharge Instructions: Dehydration, Adult, Hyperglycemia, Weakness. - Medication Reconciliation Form, Thank You Letter, Antibiotic Education, Prescription Opioid Use form. - Follow up: Private Physician; When: As needed; Reason: Recheck today's complaints, Re-evaluation by your physician. - Problem is new. - Symptoms have improved. Signatures: Dispatcher [employer] [facility] Jody Cervantes RN RN iw Дмитрий Wyatt MD MD rn Calderon, Audri, RN RN aa5 Jacey Guo, RN RN rb1 Corrections: (The following items were deleted from the chart) 13:17 12:33 09/03/2020 12:33 Discharged to Home. Impression: Dehydration; Weakness; Malaise iw and fatigue; Hyperglycemia, unspecified. Condition is Stable. Discharge Instructions: Dehydration, Adult, Hyperglycemia, Weakness. Forms are Medication Reconciliation Form, Thank You Letter, Antibiotic Education, Prescription Opioid Use. Follow up: Private Physician; When: As needed; Reason: Recheck today's complaints, Re-evaluation by your physician. Problem is new. Symptoms have improved. rn
--- NOTE | 2020-09-03 12:34 | ER ---
Nurse's Notes [facility] Name: Jessica Saldana Age: 50 yrs Sex: Female : 1970 Arrival Date: 09/03/2020 Time: 09:14 Bed 8 Private MD: Diagnosis: Dehydration;Weakness;Malaise and fatigue;Hyperglycemia, unspecified Presentation: 09/03 09:15 Chief complaint: Patient states: "I just been feeling drained since yesterday". Pt aa5 reports she was at mass today and started sweating, feeling lightheaded, nauseated, and felt her heart racing. Pt denies pain. Denies fever, denies cough, denies vomiting, denies diarrhea. 09:15 Coronavirus screen: Client denies travel out of the [place] in the last 14 days. fatigue, aa5 headache, nausea, Client presents with at least one sign or symptom that may indicate coronavirus-19. Standard/surgical mask placed on the client. Provider contacted for isolation considerations. 09:15 Acuity: MODE 3 aa5 09:15 Method Of Arrival: Ambulatory aa5 09:15 Ebola Screen: Patient negative for fever greater than or equal to 101.5 degrees aa5 Fahrenheit, and additional compatible Ebola Virus Disease symptoms. Initial Sepsis Screen: Does the patient meet any 2 criteria? No. Patient's initial sepsis screen is negative. Does the patient have a suspected source of infection? No. Patient's initial sepsis screen is negative. Risk Assessment: Do you want to hurt yourself or someone else? Patient reports no desire to harm self or others. 09:15 Onset of symptoms was August 2020. aa5 Historical: - Allergies: 09:15 No Known Allergies; aa5 - Home Meds: 09:15 Insulin pump [Active]; aa5 - PMHx: 09:15 Type 1 Diabetes; Hypertension; aa5 - PSHx: 09:15 ; Right leg; aa5 - Immunization history:: Adult Immunizations unknown. - Social history:: Smoking status: Patient denies any tobacco usage or history of. - Family history:: not pertinent. - Hospitalizations: : No recent hospitalization is reported. Screenin:20 Abuse screen: Denies threats or abuse. Nutritional screening: No deficits noted. rb1 Tuberculosis screening: No symptoms or risk factors identified. Fall Risk None identified. Assessment: 09:20 General: Appears in no apparent distress. Behavior is calm, cooperative. General: rb1 Reports fatigue for x 1 day. Pain: Denies pain. Neuro: Level of Consciousness is awake, alert, obeys commands, Oriented to person, place, time, situation. Cardiovascular: Reports fatigue, lightheadedness, nausea, Pt. reports that she can feel her heart racing Patient's skin is warm and dry. Respiratory: Airway is patent Respiratory effort is even, unlabored, Respiratory pattern is regular, symmetrical. GI: Abdomen is non-distended, Reports nausea. : No deficits noted. Derm: Skin is pink, warm \\T\\ dry. 10:55 Reassessment: Patient appears in no apparent distress at this time. Patient and/or rb1 family updated on plan of care and expected duration. Pain level reassessed. Patient is alert, oriented x 3, equal unlabored respirations, skin warm/dry/pink. 11:53 Reassessment: Patient appears in no apparent distress at this time. No changes from rb1 previously documented assessment. 12:24 Reassessment: Pt. ambulated to the restroom without difficulty. rb1 Vital Signs: 09:15 BP 147 / 95; Pulse 62; Resp 18 S; Temp 98.2(O); Pulse Ox 99% on R/A; Weight 61.23 kg aa5 (R); Height 5 ft. 8 in. (172.72 cm) (R); Pain 0/10; 10:15 BP 125 / 82; Pulse 60; Resp 17; Pulse Ox 100% on R/A; rb1 11:15 BP 124 / 76; Pulse 59; Resp 16; Pulse Ox 100% ; rb1 12:15 BP 134 / 74; Pulse 52; Resp 16; Pulse Ox 100% ; rb1 09:15 Body Mass Index 20.53 (61.23 kg, 172.72 cm) aa5 ED Course: 09:14 Patient arrived in ED. ag5 09:15 Arm band placed on Patient placed in an exam room, on a stretcher. aa5 09:16 Дмитрий Wyatt MD is Attending Physician. rn 09:23 Jody Cervantes, RN is Primary Nurse. iw 09:33 Triage completed. aa5 09:48 Jacey Guo, RN is Primary Nurse. rb1 09:53 Lactate Sent. mh5 09:53 Procalcitonin Sent. 5 09:53 [place] Screen Profile Sent. 5 09:53 T4 Free Sent. 5 09:53 TSH Sent. [facility] 09:53 COVID-19 Sent. [facility] 09:53 Flu Sent. 5 09:53 Basic Metabolic Panel Sent. 5 09:53 CBC with Diff Sent. 5 09:53 Initial lab(s) drawn, by il, sent to lab. Inserted saline lock: 22 gauge in right 5 antecubital area, using aseptic technique. Blood collected. 09:59 XRAY Chest (1 view) In Process Unspecified. EDMS 10:05 Patient has correct armband on for positive identification. Placed in gown. Bed in low mh5 position. Call light in reach. Side rails up X 1. Adult w/ patient. Warm blanket given. county assessor on. Pulse ox on. NIBP on. 10:05 EKG done, by ED staff, reviewed by Дмитрий Wyatt MD. [facility] 12:58 No provider procedures requiring assistance completed. IV discontinued, intact, rb1 bleeding controlled, No redness/swelling at site. Pressure dressing applied. Administered Medications: 10:54 Drug: NS 0.9% 1000 ml Route: IV; Rate: 1000 ml; Site: right antecubital; rb1 12:22 Follow up: IV Status: Completed infusion rb1 Outcome: 12:33 Discharge ordered by . rn 12:58 Discharged to home ambulatory, with significant other. rb1 12:58 Condition: stable 12:58 Discharge instructions given to patient, Instructed on discharge instructions, follow up and referral plans. Demonstrated understanding of instructions, follow-up care, Prescriptions given X none 13:04 Patient left the ED. rb1 Addendum: 09/06/2020 16:31 Addendum: COVID-19 Result: Negative result given to RN to notify pt. Notified pt of i w negative COVID 19 swab results. Pt advised that even with a negative test result they should remain in isolation until symptom free for 3 days without medication. Pt also advised to return to the ED for worsening symptoms. Signatures: Dispatcher [employer] [facility] Jody Cervantes RN RN iw Nieto, Roman, MD MD rn Calderon, Audri, RN RN aa5 Jacey Guo RN RN rb1 Roberta Barron 5 Quentin Khan 5 Corrections: (The following items were deleted from the chart) 09/03 13:22 13:17 Patient left the ED. iw rb1
[2020-09-03 12:38] LABS: Urine Blood NEGATIVE (NEG); Urine Glucose NEGATIVE (NEG); Urine Protein TRACE (NEG); Urine Specific Gravity >1.030 (1.005-1.030); Urine pH 5.5 (5.0-7.0)
[2020-09-03 12:41] LABS: Urine Bacteria 20-50 /HPF (<20); Urine Culture Reflex Order REFLEXED; Urine Mucus 2+ /HPF (NONE SEEN); Urine RBC <5 /HPF (NONE SEEN)
[2020-09-03 13:33] VITALS: TEMP 98.2
[2020-09-03 13:34] VITALS: O2SAT 100
[2020-09-03 13:37] VITALS: BP 134/74
== END 2020-09-03 13:17 | disposition home or self-care (01) ==
LOC: ER 09:13
DX: E86.0 Dehydration (principal); Z20.828 Contact with and (suspected) exposure to other viral communicable diseases; E10.65 Type 1 diabetes mellitus with hyperglycemia; I10 Essential (primary) hypertension; R53.81 Other malaise; R53.83 Other fatigue; Z96.41 Presence of insulin pump (external) (internal)
CPT/HCPCS: 93005; 87088; 85025; 87086; 80048; 36415; 82550; 86308; 81025; 80076; 83605; 84443; 84439; 84145; 87804 ×2; 71045; 96360; 99285; U0002; J7030; 81003; 81015